=== PATIENT | male | born 1950 | race Caucasian/White ===

== ENCOUNTER 2018-04-12 10:17 | Emergency (ER) | payer MEDICARE, BC ==
[~2018-04-12] VITALS: Ht 172.7 cm; Wt 87.7 kg
[2018-04-12] MEDS ORDERED: ALDACTONE50 MG PO (10:42)
[2018-04-12] MEDS ORDERED: FLONASE NASAL S16 GM NS (10:43)
[2018-04-12] MEDS ORDERED: K-DUR20 MEQ PO (10:43)
[2018-04-12] MEDS ORDERED: NORVASC 5MG5 MG/TAB PO (10:44)
[2018-04-12] MEDS ORDERED: COZAAR 50MG50 MG/TAB PO (10:44)
[2018-04-12] MEDS ORDERED: PROTONIX 40MG T40 MG PO (10:44)
[2018-04-12] MEDS ORDERED: MELATONIN1 MG PO (10:45)
[2018-04-12] MEDS ORDERED: EPA FISH OIL1 SGL PO (10:46)
[2018-04-12] MEDS ORDERED: CLARITIN 1010 MG/TAB PO (10:46)
[2018-04-12] MEDS ORDERED: ASPIRIN E.C. 8181 MG PO (10:46)
[2018-04-12] MEDS ORDERED: CENTRUM SILVER1 CTB PO (10:46)
[2018-04-12 10:51] LABS: BASO # 0.1 (0.0-0.2); BASO % 0.8 % (0.0-2.0); EOS # 0.5 (0.0-0.7); EOS % 3.3 % (0-4.0); GRAN # 10.4 (1.4-6.5); GRAN % 68.7 % (42.2-75.2); HEMOGLOBIN 10.2 g/dl (13.5-18.0); LYMPH # 2.9 (1.2-3.4); LYMPH % 19.1 % (20.0-51.0); MEAN CELL VOLUME 94 fl (80.0-100.0); MEAN CORPUSCULAR HEMOGLOBIN 32 pg (27.0-31.0); MEAN CORPUSCULAR HGB CONC 34 g/dl (33.0-37.0); MEAN PLATELET VOLUME 10.3 fl (7.4-10.4); MONO % 6.8 % (1.7-9.3); PLATELET COUNT 224 K/mm3 (130-400); RED BLOOD COUNT 3.19 M/mm3 (4.20-5.60); REDCELL DISTRIBUTION WIDTH-CV 13.4 % (11.5-14.5)
[2018-04-12 10:53] LABS: HEMATOCRIT 29.9 % (42.0-52.0)
[2018-04-12 10:59] LABS: PARTIAL THROMBOPLASTIN TIME 32.6 SECONDS (26.0-37.0)
[2018-04-12 11:07] LABS: ALANINE AMINOTRANSFERASE 27 U/L (21-72); ALBUMIN 3.2 gm/dL (3.5-5.0); ALKALINE PHOSPHATASE 145 U/L (50-136); ANION GAP 10 mmol/L (7-16); AST,SGOT 59 U/L (15-37); BILIRUBIN,TOTAL 1.1 mg/dL (0.0-1.0); BLOOD UREA NITROGEN 19 mg/dL (9-20); CALCIUM 8.8 mg/dL (8.4-10.2); CARBON DIOXIDE 20 mmol/L (22-30); CHLORIDE 101 mmol/L (98-107); CREATININE, serum 0.99 mg/dL (0.66-1.25); GLUCOSE 169 mg/dL (74-106); INR 1.3 (0.8-3.0); LIPASE 272 U/L (23-300); MAGNESIUM 1.5 mg/dL (1.6-2.3); PHOSPHOROUS 4.2 mg/dL (2.5-4.5); POTASSIUM 4.6 mmol/L (3.4-5.0); PROTHROMBIN TIME 15.1 SECONDS (9.7-12.8); SODIUM 131 mmol/L (137-145); TOTAL PROTEIN 7.1 gm/dL (6.4-8.2)
[2018-04-12 11:08] LABS: AMMONIA 40 umol/L (11-35)
[2018-04-12 11:16] LABS: TROPONIN-I < 0.012 ng/mL (0.000-0.034)
[2018-04-12] MEDS ORDERED: MAG OX 250 PO (13:43)
[2018-04-12 17:07] VITALS: TEMP 96.7
[2018-04-12 17:17] LABS: HEMATOCRIT 21.7 % (42.0-52.0); HEMOGLOBIN 7.4 g/dl (13.5-18.0)
[2018-04-12 17:45] VITALS: BP 96/47; PULSE 84
== END 2018-04-12 18:08 | disposition short-term general hospital (02) ==
LOC: COL.ER 10:17
PROVIDERS: Emergency Medicine
DX: I95.1 Orthostatic hypotension (principal); I10 Essential (primary) hypertension; Z90.89 Acquired absence of other organs; Z79.51 Long term (current) use of inhaled steroids
CPT/HCPCS: C9113; J2354; J2405; J3475; J7030; J7040; P9016

== ENCOUNTER 2018-04-22 11:23 | Inpatient (IN) | payer MEDICARE, BC ==
[~2018-04-22] VITALS: Ht 172.7 cm; Wt 83.7 kg
[~2018-04-22 11:23] MED LIST: ALDACTONE 100M100 MG PO; ASPIRIN E.C. 8181 MG PO; CENTRUM SILVER1 CTB PO; CLARITIN 1010 MG/TAB PO; COZAAR 50MG50 MG/TAB PO; EPA FISH OIL1 SGL PO; FLONASE NASAL S16 GM NS; K-DUR20 MEQ PO; MAG OX 250 PO; MELATONIN1 MG PO; NORVASC 5MG5 MG/TAB PO; PROTONIX 40MG T40 MG PO
[2018-04-22 13:06] VITALS: BP 110/52; PULSE 98; TEMP 98.4
[2018-04-22] MEDS ORDERED: 00186-0370-20 IH (13:33)
[2018-04-22] MEDS ORDERED: LASIX 40MG TABL40 MG PO (13:34)
[2018-04-22] MEDS ORDERED: FOLIC ACID 11 MG/TA1 PO (13:34)
[2018-04-22] MEDS ORDERED: SINGULAIR 110 MG/TAB PO (13:35)
[2018-04-22] MEDS ORDERED: NATURE'S BLEND100 M2 PO (13:37)
[2018-04-22] MEDS ORDERED: SYSTANE 0.4%-0.1 SOL OP (13:37)
[2018-04-22] MEDS ORDERED: PROZAC 20MG20 MG PO (13:39)
[2018-04-22 16:56] VITALS: BP 123/54; PULSE 92; TEMP 98
[2018-04-23 06:30] VITALS: BP 111/51; PULSE 88; TEMP 98.5
[2018-04-23 15:01] VITALS: BP 121/49; PULSE 92; TEMP 98.1
[2018-04-24 05:58] VITALS: BP 95/50; PULSE 86; TEMP 98.4
[2018-04-24 07:00] LABS: BASO # 0.1 (0.0-0.2); BASO % 0.4 % (0.0-2.0); EOS # 0.3 (0.0-0.7); EOS % 2.7 % (0-4.0); GRAN % 71.4 % (42.2-75.2); LYMPH # 1.6 (1.2-3.4); MEAN CELL VOLUME 95 fl (80.0-100.0); MEAN CORPUSCULAR HGB CONC 32 g/dl (33.0-37.0); MEAN PLATELET VOLUME 9.7 fl (7.4-10.4); MONO # 1.5 (0.1-0.6); MONO % 11.8 % (1.7-9.3); PLATELET COUNT 144 K/mm3 (130-400); RED BLOOD COUNT 2.84 M/mm3 (4.20-5.60); REDCELL DISTRIBUTION WIDTH-CV 15.9 % (11.5-14.5)
[2018-04-24 07:07] LABS: HEMATOCRIT 26.9 % (42.0-52.0); HEMOGLOBIN 8.7 g/dl (13.5-18.0); MEAN CORPUSCULAR HEMOGLOBIN 31 pg (27.0-31.0)
[2018-04-24 07:57] VITALS: BP 113/54; PULSE 94; TEMP 98.2
[2018-04-24 09:37] LABS: ALBUMIN 2.7 gm/dL (3.5-5.0); BILIRUBIN,TOTAL 2.1 mg/dL (0.0-1.0); CALCIUM 8.2 mg/dL (8.4-10.2); CREATININE, serum 0.96 mg/dL (0.66-1.25); POTASSIUM 3.6 mmol/L (3.4-5.0); TOTAL PROTEIN 6.4 gm/dL (6.4-8.2)
[2018-04-24 11:33] LABS: INR 1.4 (0.8-3.0); PROTHROMBIN TIME 15.9 SECONDS (9.7-12.8)
[2018-04-24 15:11] VITALS: BP 123/59; PULSE 102; TEMP 98.3
[2018-04-24 16:55] VITALS: BP 110/42; PULSE 98; TEMP 98
[2018-04-24 17:20] LABS: PERITONEAL -POLYMORPHONUCLEAR 36.9 % (0-25); PERITONEAL FLUID RBC 1000 /mm3 (0-0)
[2018-04-25 04:50] VITALS: BP 95/46; PULSE 92; TEMP 99.7
[2018-04-25 06:43] LABS: ALBUMIN 2.3 gm/dL (3.5-5.0); CALCIUM 7.7 mg/dL (8.4-10.2); CREATININE, serum 0.94 mg/dL (0.66-1.25); TOTAL PROTEIN 5.7 gm/dL (6.4-8.2)
[2018-04-25 17:10] VITALS: BP 115/52; PULSE 95; TEMP 98.2
[2018-04-26 05:18] VITALS: BP 113/59; PULSE 83; TEMP 98.4
[2018-04-26 09:16] LABS: INR 1.5 (0.8-3.0); PROTHROMBIN TIME 16.6 SECONDS (9.7-12.8)
[2018-04-26 18:08] VITALS: BP 106/54; PULSE 96; TEMP 98.3
[2018-04-27 05:20] VITALS: BP 111/63; PULSE 82; TEMP 98.1
[2018-04-27 06:28] LABS: MEAN CELL VOLUME 94 fl (80.0-100.0); MEAN CORPUSCULAR HGB CONC 32 g/dl (33.0-37.0); MEAN PLATELET VOLUME 9.7 fl (7.4-10.4); PLATELET COUNT 146 K/mm3 (130-400); RED BLOOD COUNT 2.82 M/mm3 (4.20-5.60); REDCELL DISTRIBUTION WIDTH-CV 15.9 % (11.5-14.5)
[2018-04-27 06:32] LABS: HEMATOCRIT 26.4 % (42.0-52.0); HEMOGLOBIN 8.5 g/dl (13.5-18.0); MEAN CORPUSCULAR HEMOGLOBIN 30 pg (27.0-31.0)
[2018-04-27 06:40] LABS: ALBUMIN 2.5 gm/dL (3.5-5.0); BILIRUBIN,TOTAL 1.3 mg/dL (0.0-1.0); CALCIUM 7.9 mg/dL (8.4-10.2); CREATININE, serum 0.88 mg/dL (0.66-1.25); MAGNESIUM 1.7 mg/dL (1.6-2.3); TOTAL PROTEIN 6.3 gm/dL (6.4-8.2)
[2018-04-27 09:47] LABS: EOSINOPHIL 2 % (0-4); LYMPHOCYTE 7 % (20.0-51.0); NEUTROPHILS 87 % (42.0-75.2)
[2018-04-27 09:48] LABS: HYPOCHROMIA 1+; PLATELET ESTIMATE DECREASED (NORMAL); TOXIC GRANULATION PRESENT
[2018-04-27 09:49] LABS: ANISOCYTOSIS 1+
[2018-04-27 18:30] VITALS: BP 109/48; PULSE 94; TEMP 98.6
[2018-04-28 06:00] VITALS: BP 110/59; PULSE 80; TEMP 98.4
[2018-04-28 18:13] VITALS: BP 158/69; PULSE 67; TEMP 98.9
[2018-04-29 06:00] VITALS: BP 109/45; PULSE 86; TEMP 98.8
[2018-04-29 16:24] VITALS: BP 121/50; PULSE 88; TEMP 98.5
[2018-04-30 06:06] VITALS: BP 106/53; PULSE 81; TEMP 98.1
[2018-04-30 07:03] LABS: MEAN CELL VOLUME 95 fl (80.0-100.0); MEAN CORPUSCULAR HGB CONC 31 g/dl (33.0-37.0); MEAN PLATELET VOLUME 9.6 fl (7.4-10.4); PLATELET COUNT 148 K/mm3 (130-400); RED BLOOD COUNT 2.92 M/mm3 (4.20-5.60); REDCELL DISTRIBUTION WIDTH-CV 15.8 % (11.5-14.5)
[2018-04-30 07:04] LABS: HEMATOCRIT 27.6 % (42.0-52.0); HEMOGLOBIN 8.6 g/dl (13.5-18.0); INR 1.4 (0.8-3.0); MEAN CORPUSCULAR HEMOGLOBIN 29 pg (27.0-31.0)
[2018-04-30 07:08] LABS: ALBUMIN 2.5 gm/dL (3.5-5.0); BILIRUBIN,TOTAL 1.6 mg/dL (0.0-1.0); CALCIUM 7.9 mg/dL (8.4-10.2); CREATININE, serum 1.04 mg/dL (0.66-1.25); MAGNESIUM 1.8 mg/dL (1.6-2.3); POTASSIUM 4.2 mmol/L (3.4-5.0); TOTAL PROTEIN 6.2 gm/dL (6.4-8.2)
[2018-04-30 07:32] LABS: BAND 2 % (0-10); EOSINOPHIL 5 % (0-4); LYMPHOCYTE 17 % (20.0-51.0); NEUTROPHILS 63 % (42.0-75.2); PLATELET ESTIMATE DECREASED (NORMAL)
[2018-04-30 07:33] LABS: ANISOCYTOSIS 1+; HYPOCHROMIA 1+; POLYCHROMASIA 1+; TARGET CELLS 1+
[2018-04-30] MEDS ORDERED: FERROUS SU325 MG/TAB PO (10:00)
[2018-04-30] MEDS ORDERED: DUO-KAPS1 CAP PO (10:06)
[2018-04-30] MEDS ORDERED: NORCO 325 MG-51 TAB PO (10:07)
[2018-04-30 18:00] VITALS: BP 133/60; PULSE 89; TEMP 99.3
[2018-05-01 06:00] VITALS: BP 104/42; PULSE 84; TEMP 98.9
[2018-05-01] MEDS ORDERED: ROXICODONE 55 MG/TAB PO (14:24)
== END 2018-05-01 15:24 | disposition home or self-care (01) | DRG 947 ==
PROVIDERS: Internal Medicine; Physician Assistant
PROC: 0W9G3ZX Drainage of Peritoneal Cavity, Percutaneous Approach, Diagnostic (ICD-10-PCS; principal; 2018-04-24)
PROC: 0W9G3ZZ Drainage of Peritoneal Cavity, Percutaneous Approach (ICD-10-PCS; 2018-04-27)
DX: R53.81 Other malaise (principal); I85.11 Secondary esophageal varices with bleeding; I81 Portal vein thrombosis; D62 Acute posthemorrhagic anemia; K70.31 Alcoholic cirrhosis of liver with ascites; F10.10 Alcohol abuse, uncomplicated; I10 Essential (primary) hypertension; Z87.891 Personal history of nicotine dependence
CPT/HCPCS: 99222-AI; 99232-AI; 99233-AI; 99239; A9284; J1170; J2405; J7040; Q9967

== ENCOUNTER 2018-05-15 09:46 | Day surgery (SDC) | payer MEDICARE, BC ==
[~2018-05-15] VITALS: Ht 172.7 cm; Wt 75.8 kg
[~2018-05-15 09:46] MED LIST changes: +00186-0370-20 IH; -ALDACTONE 100M100 MG PO; +ALDACTONE50 MG PO; +DUO-KAPS1 CAP PO; +FERROUS SU325 MG/TAB PO; +FOLIC ACID 11 MG/TA1 PO; +LASIX 40MG TABL40 MG PO; +NATURE'S BLEND100 M2 PO; +NORCO 325 MG-51 TAB PO; +PROZAC 20MG20 MG PO; +ROXICODONE 55 MG/TAB PO; +SINGULAIR 110 MG/TAB PO; +SYSTANE 0.4%-0.1 SOL OP
[2018-05-15 10:19] VITALS: BP 118/52; PULSE 80; TEMP 98.4
[2018-05-15 11:30] VITALS: BP 129/63; PULSE 86; TEMP 97.6
[2018-05-15 11:45] VITALS: BP 134/58; PULSE 79
[2018-05-15 12:00] VITALS: BP 98/62; PULSE 75
[2018-05-15 12:15] VITALS: BP 135/51; PULSE 73
== END 2018-05-15 12:30 | disposition home or self-care (01) ==
LOC: SDCO 09:46
DX: K31.7 Polyp of stomach and duodenum (principal); I85.00 Esophageal varices without bleeding; K29.30 Chronic superficial gastritis without bleeding; K74.60 Unspecified cirrhosis of liver; I10 Essential (primary) hypertension; Z80.0 Family history of malignant neoplasm of digestive organs; Z80.43 Family history of malignant neoplasm of testis; Z79.899 Other long term (current) drug therapy; K76.0 Fatty (change of) liver, not elsewhere classified
CPT/HCPCS: J2704; J3010; J7030

== ENCOUNTER 2018-06-26 09:52 | Day surgery (SDC) | payer MEDICARE, BC ==
[~2018-06-26] VITALS: Ht 172.7 cm; Wt 74.8 kg
[~2018-06-26 09:52] MED LIST changes: +CORGARD20 MG PO; +SENEXON8.6 MG PO
[2018-06-26 10:10] VITALS: BP 109/56; PULSE 62; TEMP 99
[2018-06-26] MEDS ORDERED: ALDACTONE 100M100 MG PO (11:05)
[2018-06-26 11:40] VITALS: BP 96/54; PULSE 64
[2018-06-26 11:55] VITALS: BP 109/56; PULSE 62
[2018-06-26 12:10] VITALS: BP 112/55; PULSE 55
== END 2018-06-26 12:35 ==
LOC: SDCO 09:52
DX: I85.01 Esophageal varices with bleeding (principal); K29.30 Chronic superficial gastritis without bleeding; K70.31 Alcoholic cirrhosis of liver with ascites; Z79.899 Other long term (current) drug therapy; J45.909 Unspecified asthma, uncomplicated
CPT/HCPCS: OP

== ENCOUNTER 2018-07-31 07:55 | Day surgery (SDC) | payer MEDICARE, BC ==
[~2018-07-31] VITALS: Ht 172.7 cm; Wt 75.5 kg
[~2018-07-31 07:55] MED LIST changes: +ALDACTONE 100M100 MG PO; -SYSTANE 0.4%-0.1 SOL OP; +SYSTANE 0.4%-0.1 SOL OU
[2018-07-31] MEDS ORDERED: INDERAL 20MG20 MG PO (08:19)
[2018-07-31 08:44] VITALS: BP 111/55; PULSE 64; TEMP 98.8
[2018-07-31 09:55] VITALS: BP 106/57; PULSE 70; TEMP 97.7
[2018-07-31 10:15] VITALS: BP 112/49; PULSE 65
[2018-07-31 10:30] VITALS: BP 121/55; PULSE 62
== END 2018-07-31 10:45 | disposition home or self-care (01) ==
LOC: SDCO 07:55
DX: K70.31 Alcoholic cirrhosis of liver with ascites (principal); I85.10 Secondary esophageal varices without bleeding; K31.7 Polyp of stomach and duodenum; K29.30 Chronic superficial gastritis without bleeding; J45.909 Unspecified asthma, uncomplicated; Z98.52 Vasectomy status; Z87.891 Personal history of nicotine dependence
CPT/HCPCS: J2704; J7120

== ENCOUNTER → 2018-12-21 | Outpatient (CLI) | payer MEDICARE, BC ==
[~2018-12-21] MED LIST changes: +INDERAL 20MG20 MG PO
== END ==
LOC: COL.RAD 09:28
DX: K70.31 Alcoholic cirrhosis of liver with ascites (principal); K80.20 Calculus of gallbladder without cholecystitis without obstruction

== ENCOUNTER → 2019-05-07 | Outpatient (CLI) | payer MEDICARE, BC | LOC: COL.RAD 10:25 | DX: K43.2 Incisional hernia without obstruction or gangrene (principal); R16.1 Splenomegaly, not elsewhere classified | CPT/HCPCS: Q9967 ==

== ENCOUNTER → 2019-09-27 | Outpatient (CLI) | payer MEDICARE, BC | LOC: COL.RAD 09:10 | DX: K74.60 Unspecified cirrhosis of liver (principal); K80.20 Calculus of gallbladder without cholecystitis without obstruction ==

== ENCOUNTER → 2020-03-11 | Outpatient (CLI) | payer MEDICARE, BC | LOC: COL.RAD 07:52 | DX: K70.31 Alcoholic cirrhosis of liver with ascites (principal) ==

== ENCOUNTER → 2020-09-11 | Outpatient (CLI) | payer MEDICARE, BC | LOC: COL.RAD 08:00 | DX: K70.31 Alcoholic cirrhosis of liver with ascites (principal); K74.69 Other cirrhosis of liver ==

== ENCOUNTER → 2020-09-21 | Outpatient (CLI) | payer MEDICARE, BC | LOC: COL.VAS 12:24 | DX: I65.23 Occlusion and stenosis of bilateral carotid arteries (principal) ==

== ENCOUNTER → 2021-03-10 | Outpatient (CLI) | payer MEDICARE, BC | LOC: COL.RAD 07:06 | DX: K70.31 Alcoholic cirrhosis of liver with ascites (principal); K74.69 Other cirrhosis of liver; K80.20 Calculus of gallbladder without cholecystitis without obstruction ==

== ENCOUNTER → 2021-03-19 | Outpatient (CLI) | payer MEDICARE, BC | LOC: COL.RAD 14:47 | DX: I86.1 Scrotal varices (principal) ==

== ENCOUNTER → 2021-09-06 | Outpatient (CLI) | payer MEDICARE, BC | LOC: COL.RAD 09:20 | DX: K80.20 Calculus of gallbladder without cholecystitis without obstruction (principal); R16.1 Splenomegaly, not elsewhere classified; K74.60 Unspecified cirrhosis of liver ==

== ENCOUNTER → 2022-03-11 | Outpatient (CLI) | payer MEDICARE, BC | LOC: COL.RAD 09:16 | DX: K70.30 Alcoholic cirrhosis of liver without ascites (principal); K74.69 Other cirrhosis of liver ==

== ENCOUNTER 2022-06-01 05:18 | Inpatient (IN) | payer MEDICARE, BC ==
[2022-06-01] VITALS (10 sets, daily range): BP systolic 95–143; BP diastolic 49–83; PULSE 72–90; TEMP 97.4–98.2
[~2022-06-01] VITALS: Ht 172.7 cm; Wt 92.3 kg
[2022-06-01 06:12] LABS: BASO # 0.1 K/mm3 (0.0-0.2); EOS # 0.3 K/mm3 (0.0-0.7); EOS % 3.3 % (0.0-4.0); GRAN # 7.1 K/mm3 (1.4-6.5); HEMATOCRIT 42.1 % (42.0-52.0); HEMOGLOBIN 14.2 g/dl (13.5-18.0); LYMPH # 1.3 K/mm3 (1.2-3.4); LYMPH % 13.2 % (20.0-51.0); MEAN CELL VOLUME 92 fl (80.0-100.0); MEAN CORPUSCULAR HEMOGLOBIN 31 pg (27-31); MEAN CORPUSCULAR HGB CONC 34 g/dl (33.0-37.0); MEAN PLATELET VOLUME 9.7 fl (7.4-10.4); MONO # 0.8 K/mm3 (0.1-0.6); MONO % 7.9 % (1.7-9.3); PLATELET COUNT 125 K/mm3 (130-400); RED BLOOD COUNT 4.56 M/mm3 (4.20-5.60)
[2022-06-01 06:17] LABS: INR 1.2 (0.8-3.0); PROTHROMBIN TIME 13.9 SECONDS (9.7-12.8)
[2022-06-01 06:30] LABS: ALBUMIN 3.4 gm/dL (3.4-4.8); CALCIUM 9.1 mg/dL (8.4-10.2); CREATININE, serum 1.01 mg/dL (0.72-1.25); POTASSIUM 3.8 mmol/L (3.5-4.5); TOTAL PROTEIN 7.7 gm/dL (6.2-8.1)
[2022-06-01] MEDS ORDERED: PAMELOR 25MG25 MG PO ×2 (06:34→06:35)
[2022-06-01] MEDS ORDERED: LASIX 20MG TABL20 MG PO (06:36)
[2022-06-01] MEDS ORDERED: CYMBALTA 30MG30 MG PO (06:36)
[2022-06-01] MEDS ORDERED: TRIAMCINOLONE A15 GM TP (06:38)
[2022-06-01] MEDS ORDERED: CENTRUM SILVER1 CTB PO (06:38)
[2022-06-01] MEDS ORDERED: FERROUS SU325 MG/TAB PO (06:39)
[2022-06-01] MEDS ORDERED: RT ADVAIR 228 DISKUS IH (06:39)
[2022-06-01] MEDS ORDERED: VITAMIN A10k (06:42)
--- NOTE | 2022-06-01 12:00 | NUR ---
Pt doing well since arriving to the floor following surgery. He is alert and oriented with tolerable pain complaints. Midline abd incision with dressing that is CDI. Abd binder on. SCDs on bilaterally. IV fluids infusing to left hand.
[2022-06-01] MEDS ORDERED: ROXICODONE 55 MG/TAB PO (15:33)
[2022-06-02] VITALS (7 sets, daily range): BP systolic 74–136; BP diastolic 37–65; PULSE 85–103; TEMP 98–99
--- NOTE | 2022-06-02 06:19 | NUR ---
SHIFT SUMMARY: PATIENT RESTED QUIETLY THIS SHIFT. PATIENT RECEIVED PRN OXYCODONE X1 AND PRN DILAUDID X1. PATIENT NOTED TO HAVE LOW BLOOD PRESSURES THIS SHIFT. PATIENT BP AT APPROX 0030 WAS 74/45 MANUALLY. ALSO NOTED PATIENT HAD 125 ML IN CATHETER BAG. PATIENT HAD NO COMPLAINTS OF DIZZINESS/LIGHTHEADEDNESS. AJ DRAINS NOTED TO HAVE A TOTAL OF 380 CC OF DARK BLOOD THROUGHOUT SHIFT. PATIENT ABD DRESSING NOTED TO HAVE SHADOWING. PROVIDER CALLED AND NOTIFIED OF OUTPUT AND DRAINAGE STATUS RECEIVED ORDER FOR 500 ML NS BOLUS. BOLUS GIVEN AND BLOOD PRESSURE NOTED TO BE 106/54. VITALS CHECKED AT APPROX 0500 AND PATIENT NOTED TO BE HYPOTENSIVE WITH NO SYMPTOMS. SUPERVISOR DRY CLEANING PROVIDER NOTIIFIED AGAIN AND RECIEVED ADDITIONAL 500 ML NS BOLUS. SHADOWING ON AJ DRAIN DRESSINGS AND MIDLINE INCISION DRESSING OUTLINED TO CONTINUE MONITORING. BOLUS INFUSING
[2022-06-02 06:37] LABS: HEMATOCRIT 32.4 % (42.0-52.0); HEMOGLOBIN 10.4 g/dl (13.5-18.0)
[2022-06-02 06:50] LABS: ALBUMIN 2.6 gm/dL (3.4-4.8); BILIRUBIN,TOTAL 1.2 mg/dL (0.2-1.2); CALCIUM 8.3 mg/dL (8.4-10.2); CREATININE, serum 1.35 mg/dL (0.72-1.25); POTASSIUM 4.3 mmol/L (3.5-4.5); TOTAL PROTEIN 5.9 gm/dL (6.2-8.1)
[2022-06-02 06:59] LABS: INR 1.3 (0.8-3.0); PROTHROMBIN TIME 15.1 SECONDS (9.7-12.8)
[2022-06-02 07:18] LABS: MAGNESIUM 1.7 mg/dL (1.6-2.6); PHOSPHOROUS 2.9 mg/dL (2.3-4.7)
--- NOTE | 2022-06-02 09:50 | NUR ---
PATIENT ALERT AND ORIENTED X4. SOFT BLOOD PRESSURES THIS AM. 500ML BOLUS ADMINISTERED THIS AM. BP IMPROVED. PATIENT COMPLAINS OF PAIN /, REQUESTS PAIN MEDICATION. AJ DRAINS X2, WITH DRAINAGE. MIDLINE INCISION WITH DRAINAGE. DRESSINGS CHANGED. TELLEZ TO DD WITH INCREASED OUTPUT AFTER FLUIDS BOLUS ADMINISTERED. PATIENT TOLERATING CLEAR LIQUIDS THIS AM. DENIES NAUSEA/VOMITING. LR RUNNING IN LEFT HAND AT 125ML/HOUR. PATIENT IN BED WITH CALL LIGHT NEAR.
--- NOTE | 2022-06-02 09:52 | NUR ---
Initial visit; Patient a very nice gentleman. Norberto thanked Batteryman for looking in on him and offering Spiritual Care.
[2022-06-02 13:38] LABS: HEMOGLOBIN 10.6 g/dl (13.5-18.0)
[2022-06-02 13:39] LABS: HEMATOCRIT 30.7 % (42.0-52.0)
--- NOTE | 2022-06-02 13:42 | NUR ---
aquacultural worker supervisor met with patient to complete intake and discuss discharge plan. Patient reports that he lives at home in [place] and has been raising his grandson, who is 17 years old and is currently in juvenile longterm in [place]. Patient reports to being fully independent with his ADL's and rented a walkers from [facility] 2 days ago to assist with ambulation once home. He typically does not utilize any DME at home and has no home oxygen needs. PCP is and he utilizes [facility] for prescriptions with no cost difficulty. Patient does have a DPOA-HC established that is located in his EMR listing his daughter Za ([phone]). Patient is planning on returning home once medically ready. SW collaborated with the patient's RN on need for PT/OT eval. RN states that the patient does have some weakness and consult placed. Discharge plan: Home;pending PT/OT eval
--- NOTE | 2022-06-02 15:51 | NUR ---
NOTICED BLOOD IN TELLEZ CATHETER UPON AMBULATION TO THE BATHROOM. PATIENT DENIES ANY PULLING OR TUGGING ON CATHETER. AJ DRAIN OUTPUT HAS BEEN SIGNIFICANT WELL. CALLED THESE DETAILS TO SURGEON. DIET PROGRESSED TO GENERAL.
--- NOTE | 2022-06-02 18:00 | NUR ---
TELLEZ DRAINAGE IS LIGHTENING UP FROM THE REDNESS IT WAS EARLIER IN SHIFT. PATIENT DENIES ANY PAIN. DRESSING CHANGED. OUTPUT ON DRESSING HAS DECREASED FROM EARLIER. PATIENT TOLERATED GENERAL DIET. PATIENT DENIES ANY GAS. BOWEL SOUNDS ARE ACTIVE.
--- NOTE | 2022-06-03 02:18 | NUR ---
PT ASLEEP WITH NO COMPLAINTS AT THIS TIME. ABD BINDER IN PLACE AND DRESSING UNDERNEATH INTACT AND DRY. AJ DRAINS EMPTIED AND TELLEZ EMPTIED. TELLEZ DRAINAGE PINK TINGED ALSO NOTED AND REPORTED TO PROVIDER BY DAY SHIFT RN 06/02. WILL CONTINUE TO MONITOR
[2022-06-03 04:16] VITALS: BP 116/58; PULSE 93; TEMP 98.6
--- NOTE | 2022-06-03 05:58 | NUR ---
PT AMBULATED TO BATHROOM WITH WALKER. PT REPORTS PASSING GAS BUT NO BM AT THIS TIME. RETURNED TO BED, BED ALARM SET, PAIN ADDRESSED PER MAR, AJ DRAINS EMPTIED. TELLEZ STILL DRAINING BLOODY URINE YESTERDAY.
[2022-06-03 07:37] LABS: HEMATOCRIT 25.2 % (42.0-52.0); HEMOGLOBIN 8.7 g/dl (13.5-18.0)
[2022-06-03 07:50] LABS: CALCIUM 8.2 mg/dL (8.4-10.2); CREATININE, serum 0.84 mg/dL (0.72-1.25); POTASSIUM 4.1 mmol/L (3.5-4.5)
[2022-06-03 07:55] VITALS: BP 111/52; PULSE 94; TEMP 98.5
--- NOTE | 2022-06-03 08:00 | NUR ---
Assessment complete. A&Ox4. Denies nausea and shortness of breath. Rating pain 7/10 to abdomen-intermittent cramping. Encouraged to ambulate. VS remain stable. Midline incision with airstrip-old drainage noted. Binder on. +flatus. AJ drain x2-small amount of bright red drainage noted. Resendiz cath with reddish output occasional clot noted. LKR@125ml/hr to left forearm IV infusing without difficulty. Has tolerated diet. Plan of care discussed for this shift include meds/pain control/ambulation/calling for questions/concerns. Verbalizes understanding. Call light in reach. WIll monitor.
[2022-06-03] MEDS ORDERED: SINGULAIR 110 MG/TAB PO (08:30)
--- NOTE | 2022-06-03 09:30 | NUR ---
INTd at this time.
--- NOTE | 2022-06-03 11:34 | NUR ---
Margaret: Christian Situation: Operator Lights went by room on rounds Background: Pt was resting and content Assessment: No needs right now. Pt appreciated the visit Recommendation: pens and pencils dipper will follow up as needed
[2022-06-03 12:45] VITALS: BP 105/55; PULSE 102; TEMP 98.5
[2022-06-03 16:04] VITALS: BP 119/35; PULSE 98; TEMP 98.4
--- NOTE | 2022-06-03 16:22 | NUR ---
C/O pain to abdomen-described as throbbing-rating pain 7/10 on pain scale. Oxycodone given per dr order.
--- NOTE | 2022-06-03 16:41 | NUR ---
Patient has had an uneventful day. Received oxycodone per dr order x2. No nausea. +flatus. Resendiz cath with clear yellow urine with occasional clots noted. Right forearm INT flushes well. Has been up out of bed to ambulate several times today. Resendiz cath remains in place due to clots. Denies current quesitons/concerns. Call light in reach. Will monitor.
--- NOTE | 2022-06-03 17:00 | NUR ---
Patient rating pain 2/10 to abdomen post oxycodone. Family at bedside to visit. Denies current needs. Call call light in reach. Will monitor.
[2022-06-03 19:21] VITALS: BP 113/55; PULSE 96; TEMP 98.4
[2022-06-03 23:23] VITALS: BP 110/50; PULSE 91; TEMP 98.2
[2022-06-04] VITALS (7 sets, daily range): BP systolic 110–165; BP diastolic 51–58; PULSE 90–112; TEMP 97.5–98.6
[2022-06-04 07:25] LABS: CREATININE, serum 0.85 mg/dL (0.72-1.25); MAGNESIUM 1.9 mg/dL (1.6-2.6); PHOSPHOROUS 2.5 mg/dL (2.3-4.7)
--- NOTE | 2022-06-04 07:51 | NUR ---
Patient resting in bed. Still waking up this morning. Rating pain 5/10 in abdomen. Requesting one tab roxicodone, motrin was offered. Pain in his abdomen. He denies nausea, going to order breakfast. Midline dressing intact with abdominal binder. Da drain x2 to bulb compression. Scds. Encouraged IS usage. Will monitor.
[2022-06-04 08:06] LABS: HEMATOCRIT 23.4 % (42.0-52.0)
--- NOTE | 2022-06-04 13:00 | NUR ---
Patient resting in bed. Lunch ordered. Patient requesting pain medication in preperation for shower this afternoon. rounded this am & juvenal was DC per orders & patient tolerated well. Patient also given hands on & written education on Da drains, he verbalized understanding. Will monitor.
--- NOTE | 2022-06-04 14:00 | NUR ---
Patient assisted to shower. (instructed him to not scrub incisions sites or direct water to site.) Drain sites covered. After shower new dressing to midline & Da drains. Shower did exhaust patient, but he reports feeling better after. Abdominal binder back in place. Now resting in bed & continue to encourage coughing, deep breathing & Is use.
--- NOTE | 2022-06-04 14:53 | NUR ---
Turbine Attendant attempted to meet with patient for intake assessment/discharge planning: Patient currently in shower. Turbine Attendant will return.
--- NOTE | 2022-06-04 16:43 | NUR ---
Patient up to the bathroom & able to void without difficulty since sanford removal. Patient ordering dinner. One tab roxicodone for pain for increased pain after activity. Will monitor.
--- NOTE | 2022-06-04 17:58 | NUR ---
rounded, he was made aware of patient status of SCD. He is also aware of tachycardia. New orders obtained.
[2022-06-04 18:15] LABS: HEMATOCRIT 24.2 % (42.0-52.0); HEMOGLOBIN 8.2 g/dl (13.5-18.0)
--- NOTE | 2022-06-04 21:13 | NUR ---
HS MEDS GIVEN INCLUDING OXYCODONE 5MG PO AT THIS TIME. EMPTIED AJ DRAINS, A=10 B=20 BLOODY DRAINAGE. INT TO LEFT HAND. DRSG TO MIDLINE D/I, DRAIN SITES WITH DRSG'S D/I. VOIDING WITHOUT PROBLEM.
[2022-06-05 04:27] VITALS: BP 140/55; PULSE 100; TEMP 97.3
[2022-06-05 06:04] LABS: HEMATOCRIT 23.4 % (42.0-52.0); HEMOGLOBIN 7.8 g/dl (13.5-18.0)
[2022-06-05 06:10] LABS: CALCIUM 8.2 mg/dL (8.4-10.2); CREATININE, serum 0.9 mg/dL (0.72-1.25); POTASSIUM 3.6 mmol/L (3.5-4.5)
--- NOTE | 2022-06-05 06:54 | NUR ---
PT MEDICATED WITH SCHEDULED AM MED INCLUDING OXYCODONE FOR PAIN.
[2022-06-05 07:18] VITALS: BP 97/67; PULSE 97; TEMP 98.2
[2022-06-05] MEDS ORDERED: ROXICODONE 55 MG/TAB PO (07:39)
[2022-06-05 11:35] VITALS: BP 145/66; PULSE 118; TEMP 98.2
--- NOTE | 2022-06-05 12:27 | NUR ---
PATIENT STATED HE WOULD LIKE A LIST OF NUMBERS FOR [facility] "IN CASE" HE NEEDS IT LATER ON?. PASSED ON TO INJECTION MOLDING TECHNICIAN ALESSIA, SHE STATED SHE WILL BRING HIM A LIST.
--- NOTE | 2022-06-05 13:00 | NUR ---
EDUCATION FOR AJ DRAIN MAINTENCE PROVIDED. IV DISCONTINUED. INCISION SITES CLEAN DRY AND INTACT. PATIENT TAKEN DOWNSTAIRS BY PCT. KIARA LEFT IN THE CARE OF HIS SON. PATIENT LEFT IN STABLE CONDITION.
== END 2022-06-05 13:00 | disposition home or self-care (01) | DRG 354 ==
LOC: SDCO 05:18 → SURG 11:30 → SDCO 06-03 11:30 → SURG 06-03 17:21
PROVIDERS: Surgery; ADMIT Surgery
PROC: 0WUF0JZ Supplement Abdominal Wall with Synthetic Substitute, Open Approach (ICD-10-PCS; principal; 2022-06-02)
PROC: 0KNK0ZZ Release Right Abdomen Muscle, Open Approach (ICD-10-PCS; 2022-06-02)
DX: K43.2 Incisional hernia without obstruction or gangrene (principal); D62 Acute posthemorrhagic anemia; Z79.01 Long term (current) use of anticoagulants; K70.30 Alcoholic cirrhosis of liver without ascites; F10.11 Alcohol abuse, in remission; E78.5 Hyperlipidemia, unspecified; K21.9 Gastro-esophageal reflux disease without esophagitis; I10 Essential (primary) hypertension
CPT/HCPCS: OP; A4314; A9284; C1781; J0690; J1100; J1170; J2250; J2405; J2704; J2795; J3010; J7040; J7120

== ENCOUNTER → 2022-06-17 | Outpatient (CLI) | payer MEDICARE, BC ==
[~2022-06-17] VITALS: Ht 172.7 cm; Wt 88.3 kg
[~2022-06-17] MED LIST changes: +CYMBALTA 30MG30 MG PO; +LASIX 20MG TABL20 MG PO; +PAMELOR 25MG25 MG PO; +RT ADVAIR 228 DISKUS IH; +TRIAMCINOLONE A15 GM TP; +VITAMIN A10k
[2022-06-17 06:28] VITALS: BP 119/71; PULSE 78; TEMP 98.7
[2022-06-17 06:48] LABS: HEMOGLOBIN 10.4 g/dl (13.5-18.0); MEAN CELL VOLUME 95 fl (80.0-100.0); MEAN CORPUSCULAR HEMOGLOBIN 32 pg (27-31); MEAN CORPUSCULAR HGB CONC 34 g/dl (33.0-37.0); MEAN PLATELET VOLUME 9.7 fl (7.4-10.4); PLATELET COUNT 197 K/mm3 (130-400); RED BLOOD COUNT 3.23 M/mm3 (4.20-5.60); REDCELL DISTRIBUTION WIDTH-CV 15.5 % (11.5-14.5)
[2022-06-17 06:50] LABS: HEMATOCRIT 30.7 % (42.0-52.0); INR 1.2 (0.8-3.0); PROTHROMBIN TIME 14.3 SECONDS (9.7-12.8)
[2022-06-17 06:58] LABS: ALBUMIN 2.7 gm/dL (3.4-4.8); BILIRUBIN,TOTAL 1.1 mg/dL (0.2-1.2); CALCIUM 8.7 mg/dL (8.4-10.2); CREATININE, serum 0.96 mg/dL (0.72-1.25); POTASSIUM 3.3 mmol/L (3.5-4.5)
--- NOTE | 2022-06-17 07:51 | NUR ---
PEROCEDURE CANCELLED BY
== END ==
LOC: COL.RAD 05:49
PROVIDERS: Surgery
DX: Z48.89 Encounter for other specified surgical aftercare (principal); K70.30 Alcoholic cirrhosis of liver without ascites; K43.2 Incisional hernia without obstruction or gangrene; F10.11 Alcohol abuse, in remission

== ENCOUNTER 2023-06-13 09:01 | Day surgery (SDC) | payer MEDICARE, BC ==
[~2023-06-13] VITALS: Ht 172.7 cm; Wt 77.9 kg
[~2023-06-13 09:01] MED LIST changes: +CIPRO 500MG TA500 MG PO; +DIAMOX 250MG250 MG PO; +K-DUR 10 MEQ T10 MEQ PO; +MUCINEX 60600 MG/TA1 PO
[2023-06-13] MEDS ORDERED: 00186-0370-20 IH (10:18)
[2023-06-13] MEDS ORDERED: LACTULOSE10 GM/153 PO (10:22)
[2023-06-13] MEDS ORDERED: ALDACTONE50 MG PO (10:23)
[2023-06-13] MEDS ORDERED: VITAMIN A10k (10:24)
[2023-06-13 11:00] VITALS: BP 123/63; PULSE 82; TEMP 97.6
[2023-06-13 11:15] VITALS: BP 125/65; PULSE 84
[2023-06-13 11:52] VITALS: BP 137/70; PULSE 91; TEMP 97
--- NOTE | 2023-06-13 13:28 | NUR ---
1100 PT RETURNED TO BAY 6, POST PROCEDURE, REPORT RECEIVED FROM MEI CLEMENTE. PT IS ALERT AND ABLE TO AMBULATE FROM CART TO RECLINER. PT'S BREATHING IS EVEN AND UNLABORED. 1105 PT GIVEN APPLE JUICE TOLERATED PO WELL 1132 PHYSICIAN DISCHARGE INSTRUCTIONS AND PRINTED PATIENT EDUCATIONAL MATERIALS REVIEWED WITH PT. QUESTIONS INVITED AND ANSWERED. 1155 DR. VARGAS IN TO SHARE PROCEDURE FINDINGS AND CARE PLAN. PT TO LOBBY VIA WHEEL CHAIR FOR RIDE HOME WITH FRIEND IN POV.
== END 2023-06-13 12:00 | disposition home or self-care (01) ==
LOC: SDCO 09:01
DX: I85.00 Esophageal varices without bleeding (principal); K76.6 Portal hypertension; K70.31 Alcoholic cirrhosis of liver with ascites; K31.89 Other diseases of stomach and duodenum; K22.89 Other specified disease of esophagus; Z87.891 Personal history of nicotine dependence
CPT/HCPCS: J2704; J7120